=== PATIENT | female | born 1990 | race Caucasian/White ===

== ENCOUNTER 2017-03-20 13:39 | Emergency (ER) | payer OTHER ==
[2017-03-20] MEDS ORDERED: ALPRAZolam 0.5 MG TAB ONE (13:50)
== END 2017-03-20 14:27 | disposition home or self-care (01) ==
LOC: BURERS 13:39
DX: F41.9 Anxiety disorder, unspecified (principal); F32.9 Major depressive disorder, single episode, unspecified; F17.210 Nicotine dependence, cigarettes, uncomplicated; Z79.899 Other long term (current) drug therapy
CPT/HCPCS: 99284